=== PATIENT | male | born 1980 | race Caucasian/White ===

== ENCOUNTER 2019-09-17 19:17 | Emergency (ER) | payer OTHER ==
[~2019-09-17] VITALS: Ht 182.9 cm; Wt 97.1 kg
[~2019-09-17 19:17] MED LIST: [UNRECOGNIZED DRUG - REMARK]
[2019-09-17] MEDS ORDERED: LEVAQUIN 750 M750 MG PO (19:31)
[2019-09-17] MEDS ORDERED: INSULIN (19:32)
[2019-09-17 19:58] LABS: ABSOLUTE EOSINOPHILS 0.1 thou/uL (0.0-0.7); ABSOLUTE LYMPHOCYTES 0.8 thou/uL (0.8-5.3); ABSOLUTE NEUTROPHILS 6.1 thou/uL (1.6-8.1); BASOPHILS 0.3 %; EOSINOPHILS 0.9 %; HEMATOCRIT 42.8 % (42.0-52.0); HEMOGLOBIN 15.2 gm/dL (14.0-18.0); LYMPHOCYTES 10.4 %; MCH 29.5 pg (26.0-34.0); MCHC 35.6 g/dL (28.0-37.0); MCV 82.9 fL (80.0-100.0); MONOCYTES 12.5 %; MPV 7.8 fl. (7.2-11.1); NUCLEATED RBCS 0 /100WBC; PLATELET COUNT* 317 thou/uL (150-400); POLYS 75.9 %; RBC 5.16 mil/uL (4.50-6.00); RDW-CV 12.9 % (10.5-14.5)
[2019-09-17 20:06] LABS: PROTIME 10.6 Seconds (9.20-11.50)
[2019-09-17 20:09] LABS: CALCIUM 9.1 mg/dL (8.5-10.1); CREATININE 1.1 mg/dL (0.6-1.3); POTASSIUM 3.9 mmol/L (3.5-5.1)
[2019-09-17 20:13] LABS: ALBUMIN 3.5 g/dL (3.4-5.0); TOTAL BILIRUBIN 0.9 mg/dL (<0.1-1.0); TOTAL PROTEIN 8.4 g/dL (6.4-8.2)
[2019-09-17 20:33] LABS: AMP/METHAMP Negative (Negative); BARBITURATES Negative (Negative); BENZODIAZEPINES Negative (Negative); COCAINE Negative (Negative); METHADONE Negative (Negative); OPIATES POSITIVE (Negative); PCP Negative (Negative); THC Negative (Negative)
[2019-09-17] MEDS ORDERED: FLEXERIL PO (22:44)
[2019-09-17] MEDS ORDERED: PERCOCET 10-321 EAC1 PO (22:44)
[2019-09-17 23:05] VITALS: BP 109/74
--- NOTE | 2019-09-19 10:55 | EKG ---
[place] [address] ELECTROCARDIOGRAM REPORT Name: DINORAH HERNANDEZ Room: [facility]#: [id number] Admission: 09/17/19 Attend Phys: Discharge: 09/17/19 Date of : 82 Date of Service: 09/17/191933 Report #: [id number] THIS REPORT FOR: //name// [facility] ED Test Date: 2019-09-17 Test Time: 19:34:51 Pat Name: DINORAH HERNANDEZ Department: Room: Gender: Per Diem Nurse: JUAN : 1980 Requested By: Aparna Bullock Order Number: [id number] Sherri MD: Joe Landis Measurements Intervals [place] Rate: 109 P: 33 ND: 141 QRS: 11 QRSD: 89 T: 11 QT: 328 QTc: 442 Interpretive Statements Sinus tachycardia No previous ECG available for comparison Electronically Signed On 09-19-2019 10:55:19 CDT by Joe Landis [email or web address] <ELECTRONICALLY SIGNED> By: Joe Landis MD, [facility] 09/19/19 1055 33 33 Joe Landis MD, [facility] /EPI
== END 2019-09-17 23:05 | disposition home or self-care (01) ==
LOC: M.ERS 19:17
PROVIDERS: Emergency Medicine
DX: J93.9 Pneumothorax, unspecified (principal); J18.9 Pneumonia, unspecified organism; E11.9 Type 2 diabetes mellitus without complications; F17.210 Nicotine dependence, cigarettes, uncomplicated; Z79.4 Long term (current) use of insulin; Z88.2 Allergy status to sulfonamides

== ENCOUNTER 2019-09-18 17:08 | Emergency (ER) | payer OTHER ==
[~2019-09-18] VITALS: Ht 182.9 cm; Wt 97.1 kg
[~2019-09-18 17:08] MED LIST changes: +FLEXERIL PO; +INSULIN; +LEVAQUIN 750 M750 MG PO; +PERCOCET 10-321 EAC1 PO
[2019-09-18 17:30] LABS: HEMATOCRIT 44.6 % (42.0-52.0); MCH 29.6 pg (26.0-34.0); MCHC 35.9 g/dL (28.0-37.0); MCV 82.5 fL (80.0-100.0); MPV 7.5 fl. (7.2-11.1); NUCLEATED RBCS 0 /100WBC; PLATELET COUNT* 341 thou/uL (150-400); RBC 5.41 mil/uL (4.50-6.00); RDW-CV 13.1 % (10.5-14.5); WBC 13.2 thou/uL (4.0-11.0)
[2019-09-18 17:39] LABS: APTT 31.8 Seconds (25.0-31.3); INR 1.1; PROTIME 11.3 Seconds (9.20-11.50)
[2019-09-18 17:40] LABS: POTASSIUM 3.7 mmol/L (3.5-5.1)
[2019-09-18 17:58] LABS: ALBUMIN 3.5 g/dL (3.4-5.0); TOTAL BILIRUBIN 1.9 mg/dL (<0.1-1.0); TOTAL PROTEIN 8.2 g/dL (6.4-8.2)
[2019-09-18 18:14] LABS: ABSOLUTE LYMPHOCYTES 0.7 thou/uL (0.8-5.3); ABSOLUTE MONOCYTES 1.1 thou/uL (0.0-1.2); ABSOLUTE NEUTROPHILS 11.5 thou/uL (1.6-8.1); PLATELET ESTIMATE ADEQUATE
[2019-09-18 20:23] VITALS: BP 128/79
--- NOTE | 2019-09-19 10:06 | EKG ---
[place] [address] ELECTROCARDIOGRAM REPORT Name: DINORAH HERNANDEZ Room: [facility]#: [id number] Admission: 09/18/19 Attend Phys: Discharge: 09/18/19 Date of : 82 Date of Service: 09/18/19 1720 Report #: [id number] THIS REPORT FOR: //name// [facility] ED Test Date: 2019-09-18 Test Time: 17:20:01 Pat Name: DINORAH HERNANDEZ Department: Room: Gender: [place]br[place] Tanner: : 1980 Requested By: Armani Rhodes Order Number: [id number] MD: Joe Landis Measurements Intervals [place] Rate: 133 P: 23 AL: 133 QRS: -3 QRSD: 87 T: 71 QT: 291 QTc: 433 Interpretive Statements Sinus tachycardia Compared to ECG 09/17/2019 19:34:51 No significant changes Electronically Signed On 09-19-2019 10:06:10 CDT by Joe Landis [email or web address] <ELECTRONICALLY SIGNED> By: Joe Landis MD, [facility] 09/19/19 1006 19 19 Joe Landis MD, [facility] /EPI
== END 2019-09-18 20:24 | disposition short-term general hospital (02) ==
LOC: M.ERS 17:08
PROVIDERS: Family Medicine
DX: J96.90 Respiratory failure, unspecified, unspecified whether with hypoxia or hypercapnia (principal); J18.1 Lobar pneumonia, unspecified organism; J93.9 Pneumothorax, unspecified; R11.2 Nausea with vomiting, unspecified; E11.9 Type 2 diabetes mellitus without complications; F17.210 Nicotine dependence, cigarettes, uncomplicated; Z88.2 Allergy status to sulfonamides